=== PATIENT | male | born 1970 | race Caucasian/White ===

== ENCOUNTER 2018-06-20 15:05 | Outpatient (CLI) | payer MEDICAID ==
[~2018-06-20] VITALS: Ht 180.3 cm; Wt 163.3 kg
[~2018-06-20 15:05] MED LIST: ESCI10TA45 PO; FENO145T38 PO; GLYB-97 PO; LISI-600 PO; METF500T PO; TRIA1TAB5 PO; VARE1TAB11 PO
[2018-06-20 16:01] LABS: BASOPHILS # (AUTO) 0.1 X10'3 (0-0.2); BASOPHILS % (AUTO) 1.7 % (0-1); EOSINOPHILS # (AUTO) 0.3 X10'3 (0-0.9); EOSINOPHILS % (AUTO) 3.1 % (0-6); LYMPHOCYTES # (AUTO) 1.9 X10'3 (1.1-4.8); LYMPHOCYTES % (AUTO) 22.2 % (21-51); MEAN CORPUSCULAR HEMOGLOBIN 29.5 PG (27.0-31.0); MEAN CORPUSCULAR HGB CONC 33.4 % (33.0-36.5); MEAN CORPUSCULAR VOLUME 88.2 FL (78-98); MEAN PLATELET VOLUME 9.5 FL (7.4-10.4); MONOCYTES # (AUTO) 0.7 X10'3 (0-0.9); MONOCYTES % (AUTO) 8.5 % (2-12); NEUTROPHILS # (AUTO) 5.6 X10'3 (1.8-7.7); NEUTROPHILS % (AUTO) 64.5 % (42-75); PRE OP HEMATOCRIT 50.2 % (42.0-52.0); PRE OP HEMOGLOBIN 16.8 g/dL (14.0-17.9); PRE OP PLATELET COUNT 218 X10'3 (140-440); RED BLOOD COUNT 5.69 X10'6 (4.70-6.10); RED CELL DISTRIBUTION WIDTH 11.9 % (11.5-14.5)
[2018-06-20] MEDS ORDERED: NO HOME MEDS (16:21)
[2018-06-20 16:24] LABS: ALBUMIN 3.3 G/DL (3.4-5.0); ALBUMIN/GLOBULIN RATIO 0.8 (1.1-1.5); BLOOD UREA NITROGEN 17 MG/DL (7-18); CHLORIDE 96 MMOL/L (99-107); PRE OP ANION GAP 11 (8-16); PRE OP AST 60 U/L (10-37); PRE OP BILIRUB, TOTAL 0.8 MG/DL (0.0-1.0); PRE OP POTASSIUM 4.8 MMOL/L (3.4-5.1); PRE OP SODIUM 131 MMOL/L (135-145); TOTAL CARBON DIOXIDE 23.7 MMOL/L (24-32); TOTAL PROTEIN 7.6 G/DL (6.4-8.2); eGFR 80 ML/MIN
[2018-06-20 16:25] LABS: ALKALINE PHOSPHATASE 158 IU/L (46-116)
[2018-06-20 16:26] LABS: PRE OP ALT 109 U/L (30-65); PRE OP GLUCOSE 607 MG/DL (70-104)
[2018-06-21] MEDS ORDERED: ringers solution, lacted 1,000 ML IV SCH (05:00)
[2018-06-21] MEDS ORDERED: famotidine 20mg tablet PO ONE (05:30)
[2018-06-21] MEDS ORDERED: albuterol 2.5 MG/3 ML nebule NEB ONE (05:30)
== END 2018-06-20 23:59 | disposition home or self-care (01) ==
LOC: PRE-OP 15:05 → EDSTATUS 06-21 21:45
PROVIDERS: ATTEND Orthopaedic Surgery
DX: S46.211A Strain of muscle, fascia and tendon of other parts of biceps, right arm, initial encounter (principal); Z53.8 Procedure and treatment not carried out for other reasons; F17.210 Nicotine dependence, cigarettes, uncomplicated; J44.9 Chronic obstructive pulmonary disease, unspecified; I10 Essential (primary) hypertension; G47.33 Obstructive sleep apnea (adult) (pediatric); E11.9 Type 2 diabetes mellitus without complications; E66.9 Obesity, unspecified; Z86.59 Personal history of other mental and behavioral disorders; Z68.43 Body mass index [BMI] 50.0-59.9, adult; Z98.890 Other specified postprocedural states; Z79.899 Other long term (current) drug therapy; X58.XXXA Exposure to other specified factors, initial encounter; Y93.89 Activity, other specified; Y92.89 Other specified places as the place of occurrence of the external cause; Y99.8 Other external cause status
CPT/HCPCS: 36415; 80053; 85025; 93005; J7120